=== PATIENT | female | born 1950 | race Caucasian/White ===

== ENCOUNTER 2018-07-10 17:13 | Inpatient (IN) | payer MEDICARE ==
[~2018-07-10] VITALS: Ht 152.4 cm; Wt 67.9 kg
[2018-07-10] MEDS ORDERED: SODIUM CHLORIDE FLUSH 10ML SYR IVF ONE (17:30)
[2018-07-10] MEDS ORDERED: ACETAMINOPHEN 500 MG TABLET ONE (17:56)
[2018-07-10] MEDS ORDERED: ACETAMINOPHEN 325 MG TABLET PO ONE (18:00)
[2018-07-10 18:17] LABS: BASOPHILS % (AUTO) 0 % (0-1); EOSINOPHILS % (AUTO) 1 % (1-7); LYMPHOCYTES # (AUTO) 0.37 x10^3/uL (1-3.4); LYMPHOCYTES % (AUTO) 3 % (22-44); MD NO; MEAN CORPUSCULAR HEMOGLOBIN 31.3 pg (27.0-34.8); MEAN CORPUSCULAR HGB CONC 34.5 g/dL (32.4-35.8); MEAN CORPUSCULAR VOLUME 90.8 fL (80-100); MEAN PLATELET VOLUME 7.1 fL (7.4-10.4); MONOCYTES # (AUTO) 0.64 x10^3/uL (0.2-0.8); MONOCYTES % (AUTO) 5 % (2-9); NEUTROPHILS # (AUTO) 12.22 x10^3/uL (1.8-6.8); NEUTROPHILS % (AUTO) 92 % (42-75); PLATELET COUNT 231 x10^3/uL (130-400); RED BLOOD COUNT 4.34 x10^6/uL (3.82-5.3); RED CELL DISTRIBUTION WIDTH 12.8 % (9.6-15.2)
[2018-07-10 18:48] LABS: ALBUMIN 2.7 g/dL (3.4-5.0); CALCIUM 7.8 mg/dL (8.5-10.1); CHLORIDE 105 mmol/L (98-107)
[2018-07-10 18:51] LABS: ALANINE AMINOTRANSFERASE 88 U/L (12-78); ALKALINE PHOSPHATASE 445 U/L (45-117); ANION GAP 9 mmol/L (5-15); BILIRUBIN,TOTAL 0.9 mg/dL (0.2-1.0); CREATININE 1.03 mg/dL (0.55-1.02); TOTAL PROTEIN 6.8 g/dL (6.4-8.2)
[2018-07-10] MEDS ORDERED: CEFTRIAXONE PMX 1GM/50ML 50 ML IV ONE (19:00)
[2018-07-10 19:09] LABS: CULTURE INDICATED? YES; MICROSCOPIC INDICATED
[2018-07-10] MEDS ORDERED: CEFTRIAXONE PMX 1GM/50ML 50 ML ONE (19:10)
[2018-07-10] MEDS ORDERED: SODIUM CHLORIDE 0.9%, 500ML IVBOLUS ONE (19:30)
[2018-07-10] MEDS ORDERED: FENTANYL PF 100 MCG/2ML ONE (19:46)
[2018-07-10] MEDS ORDERED: PHENYLEPHRINE 10 MG/ML ONE (19:59)
[2018-07-10] MEDS ORDERED: ROCURONIUM 10 MG/ML,10ML ONE (19:59)
[2018-07-10] MEDS ORDERED: PROPOFOL 10 MG/ML, 20ML ONE (19:59)
[2018-07-10] MEDS ORDERED: DEXAMETHASONE 4 MG/ML, 1ML ONE (19:59)
[2018-07-10] MEDS ORDERED: SUCCINYLCHOLINE 20 MG/ML, 10ML ONE (19:59)
[2018-07-10] MEDS ORDERED: ONDANSETRON 2MG/ML, 2ML ONE (19:59)
[2018-07-10] MEDS ORDERED: DIAZEPAM 5 MG/ML, 2ML IVPush PRN (20:30)
[2018-07-10] MEDS ORDERED: PROMETHAZINE 25 MG/ML, 1ML IV PRN (20:30)
[2018-07-10] MEDS ORDERED: FENTANYL PF 100 MCG/2ML IV PRN (20:30)
[2018-07-10] MEDS ORDERED: MEPERIDINE/PF 25MG/0.5ML IVPush PRN (20:30)
[2018-07-10] MEDS ORDERED: HYDROmorphone 2 MG/ML, 1ML IVPush PRN (20:30)
[2018-07-10] MEDS ORDERED: ONDANSETRON ODT 8 MG PO PRN (20:30)
[2018-07-10] MEDS ORDERED: OXYcodone 5 MG/5 ML ORAL.SOL UDC PO PRN (20:30)
[2018-07-10] MEDS ORDERED: ONDANSETRON 2MG/ML, 2ML IV PRN ×2 (20:30→22:30)
[2018-07-10] MEDS: LACTATED RINGERS 1,000 ML IV SCH (22:30)
[2018-07-10] MEDS ORDERED: HYDROcodone/APAP 5/325 TABLET PO PRN (22:30)
[2018-07-10] MEDS: PHENAZOPYRIDINE 100 MG TABLET PO SCH (22:46)
[2018-07-11 04:00] VITALS: BP 109/76
[2018-07-11] MEDS: LACTATED RINGERS 1,000 ML IV SCH (04:45)
[2018-07-11 05:39] LABS: BASOPHILS % (AUTO) 0 % (0-1); EOSINOPHILS % (AUTO) 0 % (1-7); LYMPHOCYTES % (AUTO) 9 % (22-44); MD NO; MEAN CORPUSCULAR HEMOGLOBIN 30.9 pg (27.0-34.8); MEAN CORPUSCULAR HGB CONC 33.6 g/dL (32.4-35.8); MEAN CORPUSCULAR VOLUME 92.1 fL (80-100); MEAN PLATELET VOLUME 7.8 fL (7.4-10.4); MONOCYTES # (AUTO) 0.13 x10^3/uL (0.2-0.8); MONOCYTES % (AUTO) 2 % (2-9); NEUTROPHILS # (AUTO) 5.83 x10^3/uL (1.8-6.8); NEUTROPHILS % (AUTO) 89 % (42-75); PLATELET COUNT 245 x10^3/uL (130-400); RED BLOOD COUNT 4.13 x10^6/uL (3.82-5.3); RED CELL DISTRIBUTION WIDTH 12.8 % (9.6-15.2)
[2018-07-11 05:43] LABS: ALBUMIN 2.4 g/dL (3.4-5.0); ANION GAP 7 mmol/L (5-15); CALCIUM 8.2 mg/dL (8.5-10.1); CHLORIDE 113 mmol/L (98-107)
[2018-07-11 05:47] LABS: ALANINE AMINOTRANSFERASE 82 U/L (12-78); ALKALINE PHOSPHATASE 395 U/L (45-117); BILIRUBIN,TOTAL 0.4 mg/dL (0.2-1.0); CREATININE 0.86 mg/dL (0.55-1.02); TOTAL PROTEIN 6.5 g/dL (6.4-8.2)
[2018-07-11 08:46] VITALS: BP 103/64
[2018-07-11] MEDS ORDERED: PHENAZOPYRIDINE 200 MG TABLET ONE ×2 (09:37→18:01)
[2018-07-11] MEDS: PHENAZOPYRIDINE 100 MG TABLET PO SCH ×3 (09:39→20:50)
[2018-07-11] MEDS: SODIUM CHLORIDE FLUSH 10ML SYR IVF SCH ×2 (10:47→20:51)
[2018-07-11 14:07] VITALS: BP 112/67
[2018-07-11] MEDS ORDERED: CEFTRIAXONE PMX 1GM/50ML 50 ML IV SCH (19:00)
[2018-07-11 19:03] VITALS: BP 106/62
[2018-07-12 03:17] VITALS: BP 99/62
[2018-07-12 06:03] LABS: CHLORIDE 111 mmol/L (98-107)
[2018-07-12 06:10] LABS: ALANINE AMINOTRANSFERASE 68 U/L (12-78); ALBUMIN 2.4 g/dL (3.4-5.0); ALKALINE PHOSPHATASE 310 U/L (45-117); ANION GAP 8 mmol/L (5-15); BILIRUBIN,TOTAL 0.3 mg/dL (0.2-1.0); CALCIUM 8.2 mg/dL (8.5-10.1); CREATININE 0.88 mg/dL (0.55-1.02); TOTAL PROTEIN 6.5 g/dL (6.4-8.2)
[2018-07-12 06:12] LABS: BASOPHILS # (AUTO) 0.04 x10^3/uL (0-0.1); BASOPHILS % (AUTO) 1 % (0-1); EOSINOPHILS # (AUTO) 0.06 x10^3/uL (0-0.4); EOSINOPHILS % (AUTO) 1 % (1-7); LYMPHOCYTES # (AUTO) 1.11 x10^3/uL (1-3.4); LYMPHOCYTES % (AUTO) 13 % (22-44); MD NO; MEAN CORPUSCULAR HEMOGLOBIN 31.5 pg (27.0-34.8); MEAN CORPUSCULAR HGB CONC 34.3 g/dL (32.4-35.8); MEAN CORPUSCULAR VOLUME 91.8 fL (80-100); MEAN PLATELET VOLUME 7.5 fL (7.4-10.4); MONOCYTES # (AUTO) 0.56 x10^3/uL (0.2-0.8); MONOCYTES % (AUTO) 7 % (2-9); NEUTROPHILS # (AUTO) 6.73 x10^3/uL (1.8-6.8); NEUTROPHILS % (AUTO) 79 % (42-75); PLATELET COUNT 282 x10^3/uL (130-400); RED BLOOD COUNT 4.03 x10^6/uL (3.82-5.3); RED CELL DISTRIBUTION WIDTH 13.3 % (9.6-15.2)
[2018-07-12] MEDS ORDERED: PNEUMOCOCCAL 23 VACCINE IM-VACC ONE (07:00)
[2018-07-12] MEDS ORDERED: PHENAZOPYRIDINE 200 MG TABLET ONE (07:54)
[2018-07-12] MEDS: SODIUM CHLORIDE FLUSH 10ML SYR IVF SCH (08:00)
[2018-07-12] MEDS: PHENAZOPYRIDINE 100 MG TABLET PO SCH (08:01)
[2018-07-12 08:05] VITALS: BP 105/66
[2018-07-12] MEDS ORDERED: CEFDINIR 300 MG CAPSULE ONE (14:10)
[2018-07-12 14:16] VITALS: BP 129/77
[2018-07-12] MEDS ORDERED: CEFDINIR 300 MG CAPSULE PO SCH (14:30)
[2018-07-12] MEDS ORDERED: CEFDINIR 300 MG CAPSULE PO ONE (14:30)
[2018-07-12] MEDS ORDERED: CEFD300C37 PO (15:30)
== END 2018-07-12 16:15 | disposition home or self-care (01) | DRG 853 ==
LOC: ED 19:02 → EDIP 19:09 → 4NOR 21:32 → DCLOUNGE 07-12 16:04
PROVIDERS: ADMIT Family Medicine; ATTEND Family Medicine
PROC: 0T7D8ZZ Dilation of Urethra, Via Natural or Artificial Opening Endoscopic (ICD-10-PCS; 2018-07-10)
PROC: 0T768DZ Dilation of Right Ureter with Intraluminal Device, Via Natural or Artificial Opening Endoscopic (ICD-10-PCS; principal; 2018-07-10 20:00)
DX: A41.9 Sepsis, unspecified organism (principal); E43 Unspecified severe protein-calorie malnutrition; N17.0 Acute kidney failure with tubular necrosis; F19.20 Other psychoactive substance dependence, uncomplicated; N13.6 Pyonephrosis; E87.1 Hypo-osmolality and hyponatremia; R79.89 Other specified abnormal findings of blood chemistry; N30.20 Other chronic cystitis without hematuria; N35.82 Other urethral stricture, female; Z87.442 Personal history of urinary calculi; Z87.891 Personal history of nicotine dependence; Z68.29 Body mass index [BMI] 29.0-29.9, adult
CPT/HCPCS: 36415; 74018; 74176; 76000; 80053; 80074; 81001; 83605; 83690; 85025; 87040; 87077; 87086; 87186; 99285; G0378; J0696; J1100; J2405; J2704; J3010; C2617; J0330; J2370; J7040; J7120

== ENCOUNTER → 2018-08-17 | Outpatient (CLI) | payer MEDICARE ==
[~2018-08-17] MED LIST: CEFD300C37 PO
== END | disposition home or self-care (01) ==
LOC: CFH 08:03
PROVIDERS: ATTEND Family Medicine
DX: Z12.31 Encounter for screening mammogram for malignant neoplasm of breast (principal); Z80.3 Family history of malignant neoplasm of breast
CPT/HCPCS: 77067